=== PATIENT | male | born 2000 | race African-American/Black ===

== ENCOUNTER 2021-03-28 11:55 | Emergency (ER) | payer OTHER, SELFPAY ==
[2021-03-28] MEDS ORDERED: Ondansetron ODT 4 MG TAB ONE ×2 (12:29)
[2021-03-29 20:18] LABS: SARS-CoV-2 PCR by NAA DETECTED (NotDetected)
== END 2021-03-28 12:40 | disposition home or self-care (01) ==
LOC: NAV ERS 11:55
DX: U07.1 COVID-19 (principal)
CPT/HCPCS: 87804; 99284; Q0162; U0003; U0005

== ENCOUNTER 2022-02-11 10:11 | Emergency (ER) | payer OTHER, SELFPAY ==
[2022-02-11] MEDS ORDERED: Bacitracin 1 PK ONE ×2 (11:10→12:32)
[2022-02-11] MEDS ORDERED: Lidocaine 1% (PF) 30 ML VIAL ONE (11:11)
== END 2022-02-11 12:37 | disposition home or self-care (01) ==
LOC: NAV ERS 10:11
DX: S61.211A Laceration without foreign body of left index finger without damage to nail, initial encounter (principal); W54.0XXA Bitten by dog, initial encounter
CPT/HCPCS: 12001; J2001

== ENCOUNTER 2022-02-19 20:20 | Emergency (ER) | payer SELFPAY | END 2022-02-19 20:50 | disposition home or self-care (01) | LOC: NAV ERS 20:20 | DX: S61.210D Laceration without foreign body of right index finger without damage to nail, subsequent encounter (principal); X58.XXXD Exposure to other specified factors, subsequent encounter ==

== ENCOUNTER 2023-08-09 21:36 | Emergency (ER) | payer SELFPAY ==
[2023-08-09] MEDS ORDERED: Acetaminophen 325 MG TAB ONE (22:20)
== END 2023-08-09 22:12 | disposition home or self-care (01) ==
LOC: NAV ERS 21:36
DX: S60.222A Contusion of left hand, initial encounter (principal); Y04.0XXA Assault by unarmed brawl or fight, initial encounter